=== PATIENT | male | born 1950 | race Caucasian/White ===

== ENCOUNTER 2021-01-11 07:14 | Outpatient (RCR) | payer MEDICARE, OTHER, SELFPAY ==
[2017-11-11 14:37] VITALS: BMI 35.9
[2021-01-11] MEDS: COVID-19 VACC, MRNA(PFIZER)/PF 30 MCG/0.3 ML SYRINGE IM (08:35)
[2021-02-01] MEDS: COVID-19 VACC, MRNA(PFIZER)/PF 30 MCG/0.3 ML SYRINGE IM (08:28)
== END 2021-04-10 23:59 ==
LOC: IMMUN 07:14
PROVIDERS: PCP Internal Medicine; Visit Provider Family Medicine
DX: Z23 Encounter for immunization (principal)
CPT/HCPCS: 0001A; 0002A; 91300

== ENCOUNTER 2025-05-10 06:29 | Day surgery (SDC) | payer MEDICARE, OTHER, SELFPAY ==
[2025-05-10] VITALS (8 sets, daily range): BP systolic 92–147; BP diastolic 56–80; PULSE 54–67; RESP 14–20; TEMP 36.4–36.9; O2SAT 94–97; BMI 36.0
[2025-05-10] MEDS: Lactated Ringers 1,000 ML 15 ML IV (07:08)
--- NOTE | 2025-05-10 07:29 | PCM.HP.STD ---
HPI - General General Date of Admission: 05/10/25 Date of Service: 05/10/25 Chief Complaint: Surveillance colonoscopy HPI Narrative NANETTE GRANT, is a 75 M who presents for surveillance colonoscopy. Patient has a history of polyps as well as colon cancer. I resected his colon cancer back in 2017 at [place]. Subsequent to that he has had colonoscopies with polyps. He states that he is in his usual good health. Not having any new issues or problems from a GI standpoint [facility] Medical History (Updated 05/10/25 @ 07:[address] Marko Alarcon MD) Prostate disease High cholesterol s/p port a cath removal Dehiscence of closure of skin Renal calculi Hernia of abdominal cavity Fatigue Neuropathy associated with cancer History of colon cancer Home Medications ?Medication ?Instructions ?Recorded ?Last Taken ?Type tamsulosin 0.4 mg capsule (Flomax) 0.4 mg PO QDAY 11/11/17 05/08/25 History atorvastatin 10 mg tablet 10 mg PO DAILY 05/05/25 05/08/25 History celecoxib 100 mg capsule 100 mg PO BID PRN PRN pain 05/05/25 Unknown History finasteride 5 mg tablet 5 mg PO DAILY 05/05/25 05/08/25 History coQ10 gummy 200 mg 1 tab PO 1XD 05/10/25 05/08/25 History Allergy/AdvReac Type Severity Reaction Status Date / Time No Known Allergies Allergy Verified 05/10/25 06:54 Family History (Updated 11/11/17 @ 14:36 by Raven Gonsales) Father Heart disease Mother Cancer lung Surgical History (Updated 05/05/25 @ 14:02 by Shay Alonso) History of kidney surgery Status post laser lithotripsy of ureteral calculus S/P colonoscopy S/P colectomy Social History (Updated 11/12/17 @ 11:[address] Dusty Kuhn MD) Smoking Status: Never smoker Vital Signs Vital Signs Vital Signs: 05/10/25 06:58 05/10/25 06:58 Temperature 97.5 F L Temperature Source Temporal Pulse Rate 67 Respiratory Rate 20 H Respiratory Pattern Normal Blood Pressure 147/80 H Blood Pressure Mean 102 Blood Pressure Source Monitor Blood Pressure Position Semi-Fowlers Blood Pressure Location Right Arm Pulse Ox 97 Oxygen Delivery Method Room Air Weight Weight: 258 lb 6.108 oz Body Mass Index (BMI) 36.0 Physical Exam Narrative He was alert and oriented x 3. He is in no acute distress. Assessment & Plan Assessment/Plan (1) History of colon cancer: PLAN: Plan The patient is a 75-year-old male with a history of colon cancer and colon polyps. He presents today for surveillance colonoscopy. Last colonoscopy was about 3 years ago. He denies any new issues or problems. We discussed the details of the planned procedure including risks benefits and alternatives. He wishes to proceed. This began momentarily
--- NOTE | 2025-05-10 07:35 | PCM.PRE.AN2 ---
ASA Classification* ASA Classification ASA Classification: 2 Assessment & Plan Anesthesia* Anesthesia Assessment Anesthesia Assessment: Discussed sedation and/or anesthesia options, risks, benefits, and alternatives with patient/parents/legal guardian/POA. Questions invited. The patient/parents/legal guardian/POA seems to understand and agrees to proceed with anesthesia plan. Reviewed the physical assessment, medical history, allergy history and patient home medications list prior to surgery/procedure/anesthetic and documented any changes. Performed airway and anesthesia risk assessments. Anesthesia Type Anesthesia Type: MAC History Source History Obtained from:: Patient and Chart Anesthesia Focused Assessment* Temperature: 97.5 F Pulse Rate: 67 Blood Pressure: 147/80 Respiratory Rate: 20 Pulse Ox: 97 Oxygen Delivery Method: Room Air Airway Assessment Mouth opens: >3 cm Mallampati Score: II Teeth Condition: Intact Neck Range of motion (ROM): Full ROM Labs Anesthesia Preop lab: CBC CHEMISTRY COAG Pre-Assessment Diagnosis/Proposed Procedure Planned Operative Procedure(s): COLONOSCOPY Anesthesia History Anesthesia History - card dealer: Anesthesia History - card dealer Hx Hospitalization No 05/05/25 13:51 Any Problems With Anesthesia No 05/05/25 13:51 Cholinesterase deficiency No 05/05/25 13:51 You/Your Family Experience No 05/05/25 13:51 fever (hyperthermia) with Relationship Recent Exposure to Contagious No 05/10/25 06:58 Disease Does patient have nerve No 05/05/25 13:51 stimulator Patient instructed to have device shut off --Does patient have Pacemaker No 05/10/25 06:58 or ICD? When Was Last Pacemaker Check QUESTION #4 FULL TEXT: You/Your Family Experience fever (hyperthermia) with Anesthesia Last Oral Intake Last Oral intake: Last Oral Intake NPO since 19:00 05/10/25 06:58 Meds taken in AM with sips of No 05/10/25 06:58 water? Meds patient instructed to take am of surgery Any additional information?: Yes Meds taken in AM with sips of water?: No PONV PONV - card dealer: PONV - card dealer Female No 05/05/25 13:51 HX of Motion Sickness No 05/05/25 13:51 HX of N/V After Surgery No 05/05/25 13:51 Non-Smoker Yes 05/05/25 13:51 Duration of Surgery greater No 05/05/25 13:51 than 60 minutes Number of Risk Factors 1 05/05/25 13:51 PONV Score Low Risk 05/05/25 13:51 Height & Weight Height & Weight: Anesthesia: Height & Weight Height 5 ft 11 in 05/10/25 06:58 Weight: 117.2 kg 05/10/25 06:58 Body Mass Index (BMI) 36.0 05/10/25 06:58 Respiratory Assessment Respiratory Assessment - card dealer: Respiratory Tract Infection Hx - card dealer Hx Respiratory Tract Infection No 05/05/25 13:51 STOP Sleep Apnea STOP Sleep Apnea - card dealer: STOP Sleep Apnea - card dealer Hx Hypertension No 05/05/25 13:51 Hx Sleep Apnea No 05/05/25 13:51 CPAP BIPAP Do you snore loudly (louder Yes 05/05/25 13:51 than talking or can be heard Do you often feel tired/ No 05/05/25 13:51 fatigued/ sleepy during daytime? Has anyone observed you stop No 05/05/25 13:51 breathing during sleep? STOP Results Negative 05/05/25 13:51 QUESTION #5 FULL TEXT : Do you snore loudly (louder than talking or can be heard through closed doors)? Tobacco Use History Tobacco Use History - card dealer: Tobacco Use History - card dealer Tobacco Use Smoking Status Never smoker 05/05/25 13:51 Hx Tobacco Use No 05/05/25 13:51 Years Smoking Packs Smoked per Day Smoking Cessation Date was within the last 15 years Hx Smoking Cessation Date Hx Smoking Cessation Counseling Hematologic Medial History Hematologic Hx - card dealer: Hematologic Medical Hx - documentation clerk Hx of Blood Transfusion No 05/05/25 13:51 Hx of Transfusion in last 3 No 05/05/25 13:51 Months Date of Last Transfusion (if within last 3 months) Ever experience any problems No 05/05/25 13:51 with transfusion(s)? Specify any problems Hx of Preganancy in last 3 N/A 05/05/25 13:51 Months Nurse Filling Out Transfusion [email or web address] 05/05/25 13:51 & Questions: Date: 05/05/25 05/05/25 13:51 Time: 13:56 05/05/25 13:51 Patient unable to answer at this time (ie. confused, unrespo /Reproduction History /Reproductive History - card dealer: /Reproductive Hx- card dealer Hx Now Gestational Age (in weeks): EDC: Hx Hx Para Hx Section SAB Active Medications Active Medications: Current Medications Generic Name Dose Route Start Last Admin Trade Name Freq PRN Reason Stop Dose Admin Lactated Ringer's 1,000 mls @ 15 mls/hr 05/10/25 06:45 05/10/25 07:08 IV 15 mls/hr .Q48H ADITYA Administration PFSH Medical History Prostate disease High cholesterol s/p port a cath removal Dehiscence of closure of skin Renal calculi Hernia of abdominal cavity Fatigue Neuropathy associated with cancer History of colon cancer Home Medications ?Medication ?Instructions ?Recorded ?Last Taken ?Type tamsulosin 0.4 mg capsule (Flomax) 0.4 mg PO QDAY 11/11/17 05/08/25 History atorvastatin 10 mg tablet 10 mg PO DAILY 05/05/25 05/08/25 History celecoxib 100 mg capsule 100 mg PO BID PRN PRN pain 05/05/25 Unknown History finasteride 5 mg tablet 5 mg PO DAILY 05/05/25 05/08/25 History coQ10 gummy 200 mg 1 tab PO 1XD 05/10/25 05/08/25 History Allergy/AdvReac Type Severity Reaction Status Date / Time No Known Allergies Allergy Verified 05/10/25 06:54 Family History Father Heart disease Mother Cancer lung Surgical History History of kidney surgery Status post laser lithotripsy of ureteral calculus S/P colonoscopy S/P colectomy Social History Smoking Status: Never smoker Review of Systems (Anesthesia) ROS Narrative System reviewed and no additional complaints, except as documented.
--- NOTE | 2025-05-10 08:28 | OP.CCLET_ITS ---
05/10/2025 Ino George Md Re : Colonoscopy procedure for Mich Landrumkerline George This procedure was performed on Saturday, May 10, 2025. My impressions and recommendations are as follows: Impressions : - Patent end-to-end colo-colonic anastomosis, characterized by healthy appearing mucosa. - Internal hemorrhoids. - The examination was otherwise normal on direct and retroflexion views. - No specimens collected. Recommendations : - Discharge patient to home (ambulatory). - High fiber diet. - Repeat colonoscopy in 3 years for surveillance. - Return to my office PRN. - Continue present medications. My findings are described in the full procedure note, which is enclosed. If I can be of further assistance, please feel free to contact me at . Sincerely, Marko Alarcon MD 05/10/2025 8:27:14 AM This report has been signed electronically.
--- NOTE | 2025-05-10 08:28 | OP.COLON_ITS ---
Patient Name: Mich Snowden Procedure Date: 05/10/2025 7:51 AM Date of : 1950 Age: 75 Procedure: Colonoscopy Indications: High risk colon cancer surveillance: Personal history of colon cancer Providers: Marko Alarcon MD Referring MD: Ino George Md Medicines: Monitored Anesthesia Care Patient Profile: Refer to note in patient chart for documentation of history and physical. Last Colonoscopy: 3 years ago. Complications: No immediate complications. Estimated blood loss: None. Procedure: Pre-Anesthesia Assessment: - Prior to the procedure, a History and Physical was performed, and patient medications and allergies were reviewed. The patient's tolerance of previous anesthesia was also reviewed. The risks and benefits of the procedure and the sedation options and risks were discussed with the patient. All questions were answered, and informed consent was obtained. Prior Anticoagulants: The patient has taken no anticoagulant or antiplatelet agents. ASA Grade Assessment: II - A patient with mild systemic disease. After reviewing the risks and benefits, the patient was deemed in satisfactory condition to undergo the procedure. After I obtained informed consent, the scope was passed under direct vision. Throughout the procedure, the patient's blood pressure, pulse, and oxygen saturations were monitored continuously. The colonoscope was introduced through the anus and advanced to the cecum, identified by appendiceal orifice and ileocecal valve. The ileocecal valve, appendiceal orifice, and rectum were photographed. The entire colon was well visualized. The colonoscopy was performed without difficulty. The patient tolerated the procedure well. The quality of the bowel preparation was adequate. Moderate Sedation: See the other procedure note for documentation of moderate sedation with intraservice time. Scope In: 8:00:05 AM Scope Withdrawal Time 0 hours 10 minutes 7 seconds Scope Out: 8:20:15 AM Total Procedure Duration Time 0 hours 20 minutes 10 seconds Findings: The perianal and digital rectal examinations were normal. There was evidence of a prior end-to-end colo-colonic anastomosis in the descending colon. This was patent and was characterized by healthy appearing mucosa. The anastomosis was traversed. Internal hemorrhoids were found during retroflexion. The hemorrhoids were moderate. The exam was otherwise without abnormality on direct and retroflexion views. Impression: - Patent end-to-end colo-colonic anastomosis, characterized by healthy appearing mucosa. - Internal hemorrhoids. - The examination was otherwise normal on direct and retroflexion views. - No specimens collected. Recommendation: - Discharge patient to home (ambulatory). - High fiber diet. - Repeat colonoscopy in 3 years for surveillance. - Return to my office PRN. - Continue present medications. Procedure Code(s): --- Professional --- G0105, Colorectal cancer screening; colonoscopy on individual at high risk Diagnosis Code(s): --- Professional --- Z85.038, Personal history of other malignant neoplasm of large intestine K64.8, Other hemorrhoids Z98.0, Intestinal bypass and anastomosis status CPT copyright 2021 [employer]. All rights reserved. The codes documented in this report are preliminary and upon invoice coder review may be revised to meet current compliance requirements. Marko Alarcon MD 05/10/2025 8:27:14 AM This report has been signed electronically. Number of Addenda: 0 Note Initiated On: 05/10/2025 7:51 AM
--- NOTE | 2025-05-10 08:28 | PCM.POST.ANE ---
Anesthesia: Postop Eval I Current Vital Signs Temperature: 98.1 F Pulse Rate: 67 Blood Pressure: 92/56 Respiratory Rate: 16 Pulse Ox: 95 Oxygen Delivery Method: Room Air Assessment Airway patent: Yes Spontaneous unlabored respirations: Yes Mental status: Awake and Calm nausea: No Vomiting: No Anesthesia Complication: No Fluid Hydration Crystalloid volume administer (ml): 700 Total IV fluid infused: 700 Progress Note Anesthesia document: Postop Eval 1 completed: Yes
--- NOTE | 2025-05-10 14:52 | PCM.POSTANE2 ---
Anesthesia Postop Eval I Sum Postop Eval Completion status Anesthesia document: Postop Eval 1 completed: Yes Anesthesia Postop Eval I Summary Anesthesia Postop Eval I Summary: Anesthesia Postop Eval I: Assessment Summary Airway patent Yes 05/10/25 08:29 [email or web address] Spontaneous unlabored Yes 05/10/25 08:29 [email or web address] respirations Mental status Awake,Calm 05/10/25 08:29 [email or web address] nausea No 05/10/25 08:29 [email or web address] Vomiting No 05/10/25 08:29 [email or web address] Anesthesia Postop Eval I: Fluid Summary Crystalloid volume administer 700 05/10/25 08:29 [email or web address] (ml) Colloids volume administered ( ml) Blood Product volume administered (ml) Total IV fluid infused 700 05/10/25 08:29 [email or web address] Anesthesia Postop Eval I: Summary Notes Anesthesia Complication No 05/10/25 08:29 [email or web address] Anesthesia Complication Comment: Post-operative progress note Anesthesia: Postop Eval II Evaluation Mental status: Awake and Calm Pain Level: 0 nausea: No Vomiting: No Complications Anesthesia Complication: No
== END 2025-05-10 09:18 | disposition home or self-care (01) ==
LOC: EN 06:32 → AC 06:35
PROVIDERS: PCP Internal Medicine; Referring Provider Internal Medicine; Visit Provider Surgery
PROC: 0DJD8ZZ Inspection of Lower Intestinal Tract, Via Natural or Artificial Opening Endoscopic (ICD-10-PCS; CPT 45378; principal; 2025-05-10 07:25)
DX: Z12.11 Encounter for screening for malignant neoplasm of colon (principal); K64.8 Other hemorrhoids; E78.00 Pure hypercholesterolemia, unspecified; Z79.899 Other long term (current) drug therapy; Z86.0100 Personal history of colon polyps, unspecified; Z85.038 Personal history of other malignant neoplasm of large intestine; Z98.0 Intestinal bypass and anastomosis status
CPT/HCPCS: G0105; J2405